=== PATIENT | male | born 1990 | race Caucasian/White ===

== ENCOUNTER 2016-11-16 00:48 | Inpatient (IN) | payer MEDICAID ==
[~2016-11-16] VITALS: Ht 175.3 cm; Wt 73.0 kg
[2016-11-16] MEDS ORDERED: LORAZEPAM 0.5 MG TAB ONE (02:26)
[2016-11-16] MEDS ORDERED: HALOPERIDOL 5 MG/ML VIAL IM PRN (02:50)
[2016-11-16] MEDS ORDERED: TRAZODONE 50 MG TAB PO PRN (02:50)
[2016-11-16] MEDS ORDERED: ACETAMINOPHEN 325 MG TAB PO PRN (02:50)
[2016-11-16] MEDS ORDERED: LORAZEPAM 2 MG/ML VIAL IM PRN (02:50)
[2016-11-16] MEDS ORDERED: DIPHENHYDRAMINE 50 MG/ML VIAL IM PRN (02:50)
[2016-11-16] MEDS ORDERED: LORAZEPAM 2 MG TAB PO PRN (02:50)
[2016-11-16] MEDS ORDERED: MAG HYDROX 30 ML UDC PO PRN (02:50)
[2016-11-16] MEDS ORDERED: ALU/MAG/SIM 30 ML UDC PO PRN (02:50)
[2016-11-16 04:54] VITALS: Ht 175.3 cm; Wt 73.0 kg
[2016-11-16] MEDS: NICOTINE 21 MG/24 HR TRANSDERM SCH (09:00)
[2016-11-16] MEDS: MULTIVITS/MINERALS (THERAGRAN M) TAB PO SCH (10:00)
[2016-11-16] MEDS: GABAPENTIN 300 MG CAP PO SCH ×3 (11:40→21:04)
[2016-11-16] MEDS: hydrOXYzine PAM 50 MG CAP PO PRN (11:42)
[2016-11-16] MEDS: HALOPERIDOL 5 MG TAB PO PRN (16:35)
[2016-11-16] MEDS: DIPHENHYDRAMINE 50 MG CAP PO PRN (16:36)
[2016-11-16 19:14] VITALS: BP_SYST 126; RESP 18; TEMP 98.4
[2016-11-17] MEDS: hydrOXYzine PAM 50 MG CAP PO PRN ×3 (04:04→22:52)
[2016-11-17 08:53] VITALS: BP_SYST 147; RESP 20; TEMP 97.7
[2016-11-17] MEDS: GABAPENTIN 300 MG CAP PO SCH ×3 (08:53→20:34)
[2016-11-17] MEDS: NICOTINE 21 MG/24 HR TRANSDERM SCH (09:00)
[2016-11-17] MEDS: MULTIVITS/MINERALS (THERAGRAN M) TAB PO SCH (09:00)
[2016-11-17] MEDS: HALOPERIDOL 5 MG TAB PO SCH ×2 (09:57→20:34)
[2016-11-17 19:30] VITALS: BP_SYST 110; RESP 20; TEMP 98.2
[2016-11-18] MEDS: hydrOXYzine PAM 50 MG CAP PO PRN ×2 (05:01→14:12)
[2016-11-18] MEDS: DIPHENHYDRAMINE 50 MG CAP PO PRN (05:27)
[2016-11-18] MEDS: HALOPERIDOL 5 MG TAB PO PRN (05:30)
[2016-11-18] MEDS: HALOPERIDOL 5 MG TAB PO SCH ×3 (05:30→21:37)
[2016-11-18 05:46] VITALS: BP_SYST 118; RESP 20; TEMP 98.2
[2016-11-18] MEDS: BENZTROPINE MES 1 MG TAB PO SCH ×3 (06:19→21:37)
[2016-11-18] MEDS ORDERED: CHLORPROMAZINE 25 MG TAB PO PRN ×2 (08:45→18:45)
[2016-11-18 08:55] VITALS: BP_SYST 113; RESP 16; TEMP 97.6
[2016-11-18] MEDS: MULTIVITS/MINERALS (THERAGRAN M) TAB PO SCH (09:00)
[2016-11-18] MEDS: NICOTINE 21 MG/24 HR TRANSDERM SCH (09:00)
[2016-11-18] MEDS: GABAPENTIN 300 MG CAP PO SCH ×3 (10:27→21:41)
[2016-11-18] MEDS ORDERED: CHLORPROMAZINE 50 MG/2 ML IM PRN (18:45)
[2016-11-18 19:00] VITALS: BP_SYST 104; RESP 18; TEMP 99
[2016-11-19] MEDS: MULTIVITS/MINERALS (THERAGRAN M) TAB PO SCH (07:25)
[2016-11-19] MEDS: NICOTINE 21 MG/24 HR TRANSDERM SCH (07:26)
[2016-11-19 08:00] VITALS: BP_SYST 107; RESP 18; TEMP 97.4
[2016-11-19] MEDS: HALOPERIDOL 5 MG TAB PO SCH ×2 (08:38→20:04)
[2016-11-19] MEDS: BENZTROPINE MES 1 MG TAB PO SCH ×2 (08:38→20:04)
[2016-11-19] MEDS: GABAPENTIN 300 MG CAP PO SCH ×3 (08:38→20:04)
[2016-11-19 19:30] VITALS: BP_SYST 111; RESP 18; TEMP 98.1
[2016-11-19] MEDS: hydrOXYzine PAM 50 MG CAP PO PRN (20:04)
[2016-11-19] MEDS ORDERED: MISSING DOSE XX ONE (21:15)
[2016-11-20 08:11] VITALS: BP_SYST 121; RESP 18; TEMP 97.3
[2016-11-20] MEDS: BENZTROPINE MES 1 MG TAB PO SCH (10:15)
[2016-11-20] MEDS: MULTIVITS/MINERALS (THERAGRAN M) TAB PO SCH (10:15)
[2016-11-20] MEDS: GABAPENTIN 300 MG CAP PO SCH (10:15)
[2016-11-20] MEDS: HALOPERIDOL 5 MG TAB PO SCH (10:15)
[2016-11-20] MEDS: NICOTINE 21 MG/24 HR TRANSDERM SCH (10:15)
[2016-11-20 10:54] VITALS: BP_SYST 121; RESP 18; TEMP 97.3
[2016-11-20 12:15] VITALS: BP_SYST 121; RESP 18; TEMP 97.3
== END 2016-11-20 13:20 | disposition home or self-care (01) | DRG 885 ==
LOC: ER 00:48 → EMR 02:21 → PSY 04:16
PROVIDERS: ADMIT Psychiatry & Neurology Psychiatry; ATTEND Psychiatry & Neurology Psychiatry
CPT/HCPCS: 36415; 80053; 81003; 84439; 84443; 85025; 85610; 99253